=== PATIENT | male | born 1960 | race Caucasian/White ===

== ENCOUNTER 2017-06-24 14:32 | Emergency (ER) | payer OTHER, MEDICARE, MEDICAID ==
[2017-06-24] MEDS ORDERED: KETOROLAC TROMETHAMINE INJ/PF 30 MG/1 ML SDV IM ONE (15:48)
[2017-06-24] MEDS ORDERED: LIDOCAINE 5% (700 MG) TRANSDERMAL ADH..PATCH TP ONE (15:48)
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
--- NOTE | 2017-06-24 16:43 | RADIOLOGY REPORT (SQ) ---
EXAM DESCRIPTION: L SPINE WHOLE COMPLETED DATE/TIME: 06/24/2017 4:33 pm REASON FOR STUDY: rt low back pain COMPARISON: None. NUMBER OF VIEWS: Five views including obliques. TECHNIQUE: AP, lateral, oblique, and sacral radiographic images acquired of the lumbar spine. LIMITATIONS: None. FINDINGS: MINERALIZATION: Normal. SEGMENTATION: Normal. No transitional anatomy. ALIGNMENT: Normal. VERTEBRAE: Maintained height. No fracture or worrisome bone lesion. DISCS: Mild disc space loss of height at L4-5 with osteophytes POSTERIOR ELEMENTS: No pars defects. Bilateral lower lumbar facet arthropathy left greater than righ t from L2-3 through L5-S1 HARDWARE: None in the spine. PARASPINAL SOFT TISSUES: Normal. PELVIS: Not in the field of view OTHER: No other significant finding. IMPRESSION: No acute fracture. Lower lumbar facet arthropathy and L4-5 disc space loss of height TECHNICAL DOCUMENTATION: JOB ID: [id number] [employer]- All Rights Reserved Reading location - IP/workstation name: [email or web address]
[2017-06-24 17:16] VITALS: BP 139/74
== END 2017-06-24 17:16 | disposition home or self-care (01) ==
LOC: EDBD → ER 14:32
DX: G89.29 Other chronic pain (principal); M54.5 Low back pain; T14.90XS Injury, unspecified, sequela; V49.60XS Unspecified car occupant injured in collision with unspecified motor vehicles in traffic accident, sequela; M46.86 Other specified inflammatory spondylopathies, lumbar region; R05 Cough; E11.9 Type 2 diabetes mellitus without complications; F17.200 Nicotine dependence, unspecified, uncomplicated; Z98.890 Other specified postprocedural states
CPT/HCPCS: 99283; 96372; 72110; J1885